=== PATIENT | male | born 1975 | race Caucasian/White ===

== ENCOUNTER 2017-12-15 20:10 | Inpatient (IN) | payer OTHER ==
[~2017-12-15] VITALS: Ht 175.3 cm; Wt 82.8 kg
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
[2017-12-15] MEDS ORDERED: TETANUS AND DIPHTHERIA TOX/PF 0.5 ML VIAL. VAX IM ONE (21:00)
[2017-12-15] MEDS ORDERED: IV NORMAL SALINE 1,000ML 1,000 ML IV SCH (21:00)
[2017-12-15] MEDS ORDERED: ONDANSETRON PF 4 MG/2 ML VIAL. IV ONE (21:00)
[2017-12-15] MEDS ORDERED: CONTRAST GIVEN MC PRN (21:15)
[2017-12-15] MEDS ORDERED: IOHEXOL 300 MG/ML 75 ML VIAL. IV ONE (21:30)
--- NOTE | 2017-12-15 21:33 | EKG ---
[address] [address] Test Date: 2017-12-15 Test Time: 21:27:17 Pat Name: KERMIT CULLEN Department: Room: Gender: M [employer] Professor: : 1975 Requested By: DARA BRITTON Order Number: [id number] Reading MD: Measurements Intervals [place] Rate: 95 P: 28 [place]: 146 QRS: -31 QRSD: 98 T: 57 QT: 360 QTc: 456 Interpretive Statements SINUS RHYTHM ABNORMAL LEFT AXIS DEVIATION LEFT ANTERIOR FASCICULAR BLOCK QRS(T) CONTOUR ABNORMALITY CONSIDER ANTEROSEPTAL MYOCARDIAL DAMAGE ABNORMAL ECG RI6.01 No previous ECG available for comparison
[2017-12-15 21:40] LABS: BASO # 0.1 x10^3/uL (0.0-0.2); BASO % 1 % (0-3); EOS # 0.1 x10^3/uL (0.0-0.7); EOS % 1 % (0-3); HEMATOCRIT 45.8 % (39.0-53.0); HEMOGLOBIN 15.5 g/dL (13.0-17.5); LYMPH # 2.4 x10^3/uL (1.0-4.8); LYMPH % 15 % (24-48); MEAN CORPUSCULAR HEMOGLOBIN 32 pg (25-35); MEAN CORPUSCULAR HGB CONC 34 g/dL (31-37); MEAN CORPUSCULAR VOLUME 93 fL (79-100); MONO # 0.9 x10^3/uL (0.0-1.1); MONO % 6 % (0-9); NEUT # 12.6 x10^3uL (1.8-7.7); NEUT % 79 % (31-73); PLATELET COUNT 288 x10^3/uL (140-400); RED CELL DISTRIBUTION WIDTH 13.1 % (11.5-14.5); WHITE BLOOD COUNT 16.1 x10^3/uL (4.0-11.0)
[2017-12-15 21:49] LABS: BARBITURATES NEG (NEG); BENZODIAZEPINES NEG (NEG); CANNABINOIDS POS (NEG); COCAINE NEG (NEG); METHADONE NEG (NEG); OPIATES NEG (NEG); PHENCYCLIDINE NEG (NEG)
[2017-12-15 21:54] LABS: AMPHETAMINE/METHAMPHETAMINE NEG (NEG)
[2017-12-15 22:00] LABS: ALBUMIN 3.9 g/dL (3.4-5.0); ALBUMIN/GLOBULIN RATIO 1.3 (1.0-1.7); CALCIUM 8.6 mg/dL (8.5-10.1); CREATININE 1.1 mg/dL (0.7-1.3); DIRECT BILIRUBIN 0.1 mg/dL (0.0-0.2); GFR 74.1; POTASSIUM 3.8 mmol/L (3.5-5.1); TOTAL BILIRUBIN 0.2 mg/dL (0.2-1.0); TOTAL PROTEIN 6.8 g/dL (6.4-8.2)
[2017-12-15 22:06] LABS: BACTERIA,URINE 0 /HPF (0-FEW); BILIRUBIN,URINE NEG (NEG); CLARITY,URINE CLEAR; COLOR,URINE YELLOW; GLUCOSE,URINE NEG (NEG); NITRITE,URINE NEG (NEG); RBC,URINE OCC /HPF (0-2); SQUAMOUS EPITHELIAL CELL,UR OCC /LPF; UROBILINOGEN,URINE 0.2 mg/dL (0.2 mg/dL); WBC,URINE OCC /HPF (0-4)
[2017-12-15 22:51] LABS: % LYMPHS 15 % (24-48); % MONOS 6 % (0-10); % SEGS 79 % (35-66)
[2017-12-15 22:52] LABS: OVALOCYTES OCC; PLT ESTIMATE ADEQUATE (ADEQUATE); POLYCHROMASIA SLIGHT
[2017-12-15] MEDS ORDERED: cefTRIAXone IV Push 1 GM VIAL. IVP ONE (23:30)
[2017-12-15] MEDS ORDERED: IV NORMAL SALINE 1,000ML 1,000 ML IV ONE (23:45)
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
[2017-12-16] MEDS ORDERED: ONDANSETRON PF 4 MG/2 ML VIAL. IV PRN ×2 (00:45→14:15)
[2017-12-16] MEDS: IV RINGERS SOLUTION,LACTATED 1,000 ML IV SCH ×3 (00:58→10:16)
[2017-12-16] MEDS ORDERED: THIAMINE 200 MG/2 ML VIAL. IV ONE (01:00)
[2017-12-16] MEDS ORDERED: FOLIC ACID 5 MG/ML SYRINGE for ER IV ONE (01:01)
[2017-12-16] MEDS ORDERED: MVI, ADULT NO.4 WITH VIT K 10 ML VIAL IV ONE (01:01)
[2017-12-16] MEDS ORDERED: IV NORMAL SALINE 1,000ML 1,000 ML IV ONE (01:15)
[2017-12-16 01:40] VITALS: BP 130/66
[2017-12-16] MEDS: IPRATRPIUM/ALBUTEROL 0.5/2.5MG 3 ML NEBU. NEB SCH ×3 (05:29→15:33)
[2017-12-16 05:38] VITALS: BP 125/65
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
[2017-12-16] MEDS: LACTOBACILLUS RHAMNOSUS GG 1 CAPSULE. PO SCH ×2 (08:04→21:17)
[2017-12-16] MEDS ORDERED: ACETAMINOPHEN 325 MG TABLET PO PRN (08:15)
[2017-12-16] MEDS: cefTRIAXone IV Push 1 GM VIAL. IVP SCH ×2 (08:51→21:17)
[2017-12-16] MEDS ORDERED: MVI, ADULT NO.4 WITH VIT K 10 ML, FOLIC ACID SYRINGE for ER 1 MG, THIAMINE 100 MG in IV... IV SCH ×4 (09:00)
[2017-12-16 11:20] VITALS: BP 116/63
[2017-12-16 12:14] LABS: BASO % 0 % (0-3); EOS % 0 % (0-3); HEMATOCRIT 42.5 % (39.0-53.0); HEMOGLOBIN 14.6 g/dL (13.0-17.5); LYMPH # 1.1 x10^3/uL (1.0-4.8); LYMPH % 12 % (24-48); MEAN CORPUSCULAR HEMOGLOBIN 32 pg (25-35); MEAN CORPUSCULAR HGB CONC 34 g/dL (31-37); MEAN CORPUSCULAR VOLUME 92 fL (79-100); MONO # 0.7 x10^3/uL (0.0-1.1); MONO % 8 % (0-9); NEUT # 7.7 x10^3uL (1.8-7.7); NEUT % 80 % (31-73); PLATELET COUNT 239 x10^3/uL (140-400); RED CELL DISTRIBUTION WIDTH 13.5 % (11.5-14.5); WHITE BLOOD COUNT 9.7 x10^3/uL (4.0-11.0)
[2017-12-16] MEDS: HYDROcodone/APAP 5/325MG 1 TAB TABLET PO PRN ×2 (12:17→21:16)
[2017-12-16] MEDS ORDERED: HYDROcodone/APAP 5/325MG 1 TAB TABLET PO PRN (12:30)
[2017-12-16 12:35] LABS: ALBUMIN 3.3 g/dL (3.4-5.0); ALBUMIN/GLOBULIN RATIO 1.1 (1.0-1.7); CALCIUM 8.2 mg/dL (8.5-10.1); CREATININE 0.9 mg/dL (0.7-1.3); GFR 93.5; TOTAL PROTEIN 6.4 g/dL (6.4-8.2)
[2017-12-16 12:37] LABS: TOTAL BILIRUBIN 0.7 mg/dL (0.2-1.0)
[2017-12-16] MEDS ORDERED: MORPHINE SULFATE 4 MG/ML DISP.SYRIN. IV PRN ×2 (14:00)
[2017-12-16] MEDS: IV NORMAL SALINE 1,000ML 1,000 ML IV SCH ×2 (14:13→23:27)
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
[2017-12-16 15:57] VITALS: BP 145/90
[2017-12-16] MEDS ORDERED: ALBU1.25 NEB (16:45)
[2017-12-16] MEDS ORDERED: IPRATRPIUM/ALBUTEROL 0.5/2.5MG 3 ML NEBU. NEB PRN (17:00)
[2017-12-16 19:17] VITALS: BP 129/81
[2017-12-16] MEDS ORDERED: IPRATRPIUM/ALBUTEROL 0.5/2.5MG 3 ML NEBU. NEB SCH (20:00)
[2017-12-16] MEDS: chlordiazePOXIDE HCL 25 MG CAPSULE PO PRN (22:23)
[2017-12-16 22:30] VITALS: BP 125/67
[2017-12-17 06:13] VITALS: BP 122/70
[2017-12-17 06:40] LABS: BASO # 0.1 x10^3/uL (0.0-0.2); BASO % 1 % (0-3); EOS # 0.1 x10^3/uL (0.0-0.7); EOS % 2 % (0-3); HEMATOCRIT 39.2 % (39.0-53.0); HEMOGLOBIN 13.5 g/dL (13.0-17.5); LYMPH # 1.5 x10^3/uL (1.0-4.8); LYMPH % 19 % (24-48); MEAN CORPUSCULAR HEMOGLOBIN 32 pg (25-35); MEAN CORPUSCULAR HGB CONC 34 g/dL (31-37); MEAN CORPUSCULAR VOLUME 93 fL (79-100); MONO # 0.8 x10^3/uL (0.0-1.1); MONO % 11 % (0-9); NEUT # 5.3 x10^3uL (1.8-7.7); NEUT % 67 % (31-73); PLATELET COUNT 201 x10^3/uL (140-400); RED BLOOD COUNT 4.21 x10^6/uL (4.30-5.70); RED CELL DISTRIBUTION WIDTH 13.5 % (11.5-14.5); WHITE BLOOD COUNT 7.8 x10^3/uL (4.0-11.0)
[2017-12-17 07:05] LABS: ALBUMIN/GLOBULIN RATIO 1.1 (1.0-1.7); CREATININE 0.9 mg/dL (0.7-1.3); GFR 93.5; POTASSIUM 3.5 mmol/L (3.5-5.1); TOTAL BILIRUBIN 0.5 mg/dL (0.2-1.0); TOTAL PROTEIN 5.8 g/dL (6.4-8.2)
[2017-12-17] MEDS: LACTOBACILLUS RHAMNOSUS GG 1 CAPSULE. PO SCH (08:04)
[2017-12-17] MEDS: chlordiazePOXIDE HCL 25 MG CAPSULE PO PRN (08:04)
[2017-12-17] MEDS: HYDROcodone/APAP 5/325MG 1 TAB TABLET PO PRN (08:04)
[2017-12-17] MEDS: cefTRIAXone IV Push 1 GM VIAL. IVP SCH (09:00)
[2017-12-17] MEDS ORDERED: MVI, ADULT NO.4 WITH VIT K 10 ML, THIAMINE 100 MG, FOLIC ACID 1 MG in IV NORMAL SALINE ... IV SCH ×4 (09:00)
[2017-12-17] MEDS: IV NORMAL SALINE 1,000ML 1,000 ML IV SCH (10:15)
[2017-12-17] MEDS ORDERED: CEPH-264 PO (11:41)
[2017-12-17] MEDS ORDERED: HYDR-2758 PO (11:41)
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
== END 2017-12-17 12:33 | disposition home or self-care (01) | DRG 605 ==
LOC: ER 20:10 → EEVIPCON 20:10 → 1 SOUTH 12-16 00:32
PROVIDERS: ADMIT Family Medicine; ATTEND Family Medicine
DX: S01.81XA Laceration without foreign body of other part of head, initial encounter (principal); E87.2 Acidosis; D72.829 Elevated white blood cell count, unspecified; F12.10 Cannabis abuse, uncomplicated; F10.129 Alcohol abuse with intoxication, unspecified; S00.83XA Contusion of other part of head, initial encounter; S02.5XXA Fracture of tooth (traumatic), initial encounter for closed fracture; F17.210 Nicotine dependence, cigarettes, uncomplicated; J32.0 Chronic maxillary sinusitis; K02.9 Dental caries, unspecified; Y90.6 Blood alcohol level of 120-199 mg/100 ml; Y04.0XXA Assault by unarmed brawl or fight, initial encounter; Y93.89 Activity, other specified; Y92.89 Other specified places as the place of occurrence of the external cause; Y99.8 Other external cause status; F19.10 Other psychoactive substance abuse, uncomplicated; R74.8 Abnormal levels of other serum enzymes
CPT/HCPCS: 36415; 70450; 70486; 71046; 71260; 72125; 74160; 80048; 80053; 80076; 80307; 81001; 82150; 82550; 83605; 83690; 85007; 85025; 85610; 85730; 86850; 86900; 86901; 87040; 90471; 90714; 93005; 96361; 96374; 96375; G0480; J0696; J2270; J2405; J7120; 99285-25; G0479; J7030

== ENCOUNTER → 2021-11-08 | Outpatient (CLI) | payer MEDICAID ==
[~2021-11-08] MED LIST: ALBU1.25 NEB; CEPH-264 PO; HYDR-2155 PO
--- NOTE | 2021-11-08 14:50 | RAD ---
INDICATION: Reason: CHRONIC RT TESTICULAR SWELLING / Spl. Instructions: / History: COMPARISON: None. TECHNIQUE: Grayscale, color and spectral doppler ultrasound images obtained of the scrotum. FINDINGS: Right Testicle: 51 x 35 x 24 mm. Vascular flow is identified. Left Testicle: 50 x 31 x 24 mm. Vascular flow is identified. Hypervascular right epididymis which appears hypoechoic and prominent in size. IMPRESSION: * The right epididymis is prominent in size and hypervascular. Would correlate with symptoms since c auses such as epididymitis could have this appearance. Electronically signed by: Alli Hagan MD (11/08/2021 2:47 PM) [id number]
--- NOTE | 2021-11-08 14:51 | RAD ---
AP and Lateral Views of the Chest 11/08/2021 1:40 PM Indication: Asthma Comparison: None Findings: There is no focal consolidation or infiltrate identified. The cardiomediastinal silhouette is within normal limits. There is no evidence of pneumothorax or pleural effusion. No acute osseous a bnormalities are identified. Impression: No evidence of acute cardiopulmonary process. Electronically signed by: Arcadio Harrington MD (11/08/2021 2:48 PM) [id number]
--- NOTE | 2021-11-08 16:06 | RAD ---
Exam performed: Right hand 3 views. Indication: Right calf pain. Date of Service: 11/08/2021 Comparison: None available Discussion: PA, oblique lateral radiographs of the hand is obtained. There is severe narrowing of the first carpo metacarpal joint with periarticular sclerosis and cystic changes. The remainder joint spaces are well -preserved. The articular margins are smooth. No soft tissue swelling or foreign bodies detected. Impression: Advanced degenerative changes involving the first carpometacarpal joint. No acute abnormality seen. Electronically signed by: Colleen Lee MD (11/08/2021 4:04 PM) [facility]
== END ==
LOC: US 13:20
PROVIDERS: ATTEND Physician Assistant
DX: J45.909 Unspecified asthma, uncomplicated (principal); N50.811 Right testicular pain; M19.041 Primary osteoarthritis, right hand
CPT/HCPCS: 71046; 73130; 76870